=== PATIENT | male | born 1945 ===

== ENCOUNTER → 2016-10-13 | Day surgery (SDC) | payer MEDICARE, BC ==
[2016-10-13] VITALS (10 sets, daily range): BP systolic 114–127; BP diastolic 66–74
[~2016-10-13] VITALS: Ht 167.6 cm; Wt 79.4 kg
[~2016-10-13] MED LIST: AMLODIPINE PO; ASPIR 8181 MG ORAL; CRESTOR20 MG ORAL; FISH OIL PO; HYDROCHLOROTHIA25 MG ORAL; LORAZEPAM0.5 MG ORAL; LR 1000ml 1,000 ML IVLG SCH; LR 1000ml ONE; Lidocaine 1% MPF 10mg/ml 5ml ONE; MULTIVITAMINS1 EAC2 ORAL; PROZAC20 MG ORAL; Propofol 10mg/ml 20ml IV ONE; SERTRALINE HCL25 MG ORAL; VIT C PO
--- NOTE | 2016-10-13 09:22 | Short Stay Surgery H&P ---
History of Present Illness History of Present Illness Chief Complaint Abdominal pains and screening colon HPI Malachi Lemus is a 71 year old male who was admitted on for Colon Screening Patient History Allergies: Coded Allergies: No Known Allergies (Unverified , 10/12/16) PAST MEDICAL HISTORY: (1) Hyperlipidemia Past Surgeries: Social History: Medication History Scheduled Aspirin* (Aspir 81*), 81 MG ORAL DAILY, (Reported) Fluoxetine Hcl* (Prozac*), 20 MG ORAL DAILY, (Reported) Lorazepam* (Lorazepam*), 0.5 MG ORAL PRN, (Reported) Multivitamins* (Multivitamins*), 1 TAB ORAL DAILY, (Reported) Rosuvastatin Calcium* (Crestor*), 20 MG ORAL DAILY, (Reported) Sertraline Hcl* (Sertraline Hcl*), 25 MG ORAL DAILY, (Reported) [Fish Oil], 1 TAB-CAP PO DAILY, (Reported) [Vit C], 1,000 MG PO DAILY, (Reported) Review of Systems Cardiovascular: Reports: no symptoms Respiratory: Reports: no symptoms Skeletal: Reports: no symptoms Gastrointestinal: Reports: no symptoms Genitourinary: Reports: no symptoms Neurologic: Reports: no symptoms Endocrine: Reports: no symptoms Hematologic: Reports: no symptoms Physical Exam Vital Signs Last Vital Signs Date Time Temp Pulse Resp B/P Pulse Ox O2 Delivery O2 Flow Rate FiO2 10/13/16 09:01 97.8 74 18 127/74 95 Room Air Skin: normal HENT: normal Heart: normal Lungs: normal Abdomen: normal Extremities: normal Genitourinary: normal Plan Plan of Care Upper and lower GI endoscopy Preop Interventions None. Summary of Findings See the reports Final Diagnosis: Attestation Are the patient's medical conditions optimized for surgery? Attestation Response: yes EMY DUMONT Oct 13, 2016 09:22
--- NOTE | 2016-10-13 09:23 | Pre-Procedure Note/Attestation ---
Pre-Procedure Note/Attestation Complete Prior to Procedure Planned Procedure: left Procedure Narrative: The endoscopic examination of the upper and lower GI tract. Indications for Procedure Pre-Operative Diagnosis: R/O gastritis/esophagitis/colitis colon polyps. Attestation I attest that I discussed the nature of the procedure; its benefits; risks and complications; and alternatives (and the risks and benefits of such alternatives ), prior to the procedure, with the patient (or the patient's legal screening representative). I attest that, if there was a reasonable possibility of needing a blood transfusion, the patient (or the patient's legal screening representative) was given the [facility] standardized written summary, pursuant to the Junito Patel Blood Safety Act ([place] Health and Safety Code # 1645, as amended). I attest that I re-evaluated the patient just prior to the surgery and that there has been no change in the patient's H&P, except as documented below: EMY DUMONT Oct 13, 2016 09:23
--- NOTE | 2016-10-13 09:25 | Anethesia Preoperative Eval ---
Anesthesia Pre-op PMH/ROS General Date of Evaluation: Oct 13, 2016 Time of Evaluation: 09:24 Anesthesiologist: richie Mallampati Score Class I : Soft palate, uvula, fauces, pillars visible Class II: Soft palate, uvula, fauces visible Class III: Soft palate, base of uvula visible Class IV: Only hard plate visible Mallampati Classification: Class II Surgeon: Rhab Diagnosis: colon polyp Surgical Procedure: EGD/Colon Anesthesia History: none Family History: no anesthesia problems Allergies: Coded Allergies: No Known Allergies (Unverified , 10/12/16) Medications: see eMAR Past Medical History Cardiovascular: Reports: HTN Pulmonary: Denies: COPD, DIONE, asthma, other Gastrointestinal/Genitourinary: Denies: CRI, ESRD, GERD, other Neurologic/Psychiatric: Reports: depression/anxiety Endocrine: Reports: DM HEENT: Denies: [place] (L), [place] (R), cataract (L), cataract (R), glaucoma, other Hematology/Immune: Denies: DVT, anemia, bleeding disorder, other Musculoskeletal/Integumentary: Denies: DDD, DJD, OA, RA, edema, other Anesthesia Pre-op Phys. Exam Physician Exam Last Vital Signs Date Time Temp Pulse Resp B/P Pulse Ox O2 Delivery O2 Flow Rate FiO2 10/13/16 09:01 97.8 74 18 127/74 95 Room Air Constitutional: NAD Neurologic: CN 2-12 intact Cardiovascular: RRR Respiratory: CTA Gastrointestinal: S/NT/ND Airway Exam Mallampati Classification 2 Mallampati Score: Class II MO: full ROM: full Dentures: no lower, no upper Anesthesia Pre-op A/P Studies Pre-op Studies: EKG - SR Risk Assessment & Plan Plan: mac Status Change Before Surgery: No Pre-Antibiotics Drug: none BHAVANI NORTON CRNA Oct 13, 2016 09:25
--- NOTE | 2016-10-13 09:46 | Endoscopy Procedure Note ---
Endoscopy Procedure Note Indication for Procedure: History of GERDs and screening colon Procedures Performed: EGD - Minimal gastritis, biopsy obtained from antrum., colonoscopy - Minimal internal hemorrhoids with mild diverticulosis of rectosigmoid area. Substandard colon clean up. Specimen: yes Pt Tolerated Procedure Well: Yes Estimated Blood Loss: none Anesthesiologist: Dr. Orr Anesthesia: moderate sedation Medication Given: see anesthesia record Implant(s) used?: No 50 yrs or older w/o bx or poly: Yes 10yrs. F/U not recommended: Yes If not recommended, why?: Med reason:<3 yrs.: System Reason:<3 yrs.: Last colonoscopy >= to 3yrs: Yes EMY DUMONT Oct 13, 2016 09:46
--- NOTE | 2016-10-13 09:47 | Discharge Instructions ---
Discharge Instructions Discharge Instructions Follow up with: Visit the doctor in office after two weeks. For Congestive Heart Failure Reminder Report to your physician any weight gain of 5 pounds or more in one week. EMY DUMONT Oct 13, 2016 09:47
--- NOTE | 2016-10-13 10:05 | Immediate Post-Op Evaluation ---
Immediate Post-Op Evalulation Immediate Post-Op Evalulation Procedure: EGD/Colonoscopy Date of Evaluation: Oct 13, 2016 Time of Evaluation: 09:55 IV Fluids: 200 Blood Pressure Systolic: 114 Blood Pressure Diastolic: 48 Pulse Rate: 77 Respiratory Rate: 14 O2 Sat by Pulse Oximetry: 99 Nausea: No Vomiting: No Patient Status: awake, reacts, patent Hydration Status: adequate Drug: none BHAVANI NORTON CRNA Oct 13, 2016 10:05
--- NOTE | 2016-10-13 10:31 | 48 Hour Post Anesthesia Eval ---
Post Anesthesia Evaluation Procedure: EGD/Colonoscopy Date of Evaluation: Oct 13, 2016 Time of Evaluation: 10:28 Blood Pressure Systolic: 117 0: 71 Pulse Rate: 67 O2 Sat by Pulse Oximetry: 99 Airway: patent Nausea: No Vomiting: No Hydration Status: adequate Mental Status/LOC: patient returned to baseline Post-Anesthesia Complications: none Follow-up care needed: N/A BHAVANI NORTON CRNA Oct 13, 2016 10:31
--- NOTE | 2016-10-13 15:29 | Operative Note - Dictated ---
DATE OF OPERATION: 10/13/2016 PROCEDURE: Esophagogastroduodenoscopy with biopsy. PREOPERATIVE DIAGNOSES: 1. Abdominal pain. 2. History of gastroesophageal reflux disease. POSTOPERATIVE DIAGNOSES: Very minimal gastritis, otherwise complete normal upper gastrointestinal endoscopy. Biopsy was taken per random from antrum. INSTRUMENT: GIF Olympus upper GI video endoscope. ANESTHESIOLOGIST: Dr. Burgos. DESCRIPTION OF PROCEDURE: The patient after arriving endoscopy unit, was told about risks and benefits of the procedure, which he accepted and signed the informed consent. He was then put on the left lateral decubitus position. After adequate IV sedation, scope gently passed through the cricopharyngeal area, was lodged into the upper esophagus, and gradually advanced towards gastroesophageal junction. The entire length of the esophagus was normal. No evidence of any abnormality such as tumors, inflammatory process, exudate, stricture etc. was found. GE junction also looked normal. At this time, the scope was advanced into the stomach. Gastric cavity was distended and gradually the areas of the fundus and the body and the antrum were examined which basically revealed normal finding except minimal inflammatory process in the body and the antrum raising the possibility of underlying very mild gastritis, one random biopsy from the antrum was obtained and subsequently the scope was passed through the pylorus. First and second portion of duodenum were found to be completely normal. At this time, the scope was pulled out and procedure was terminated. The patient tolerated the procedure well. Said Anne Elmore DR: Demar JOB#: [id number] CC:
--- NOTE | 2016-10-13 15:39 | Operative Note - Dictated ---
DATE OF OPERATION: 10/13/2016 SURGEON: Jamshid Elmore M.D. ANESTHESIOLOGIST: Daniel Orr. PROCEDURE: Total colonoscopy. PREOPERATIVE DIAGNOSIS: Screening colonoscopy. POSTOPERATIVE DIAGNOSES: 1. Very minimal internal hemorrhoid and a single diverticulum found in the rectosigmoid area, otherwise completely normal study up to the base of the cecum examined. 2. Poor colonic preparation. MEDICATION USED: Per Dr. Orr. INSTRUMENT: GIF Olympus videocolonoscope. DESCRIPTION OF PROCEDURE: The patient after arriving in the endoscopy unit, was told about risks and benefits of the procedure, which he accepted and signed the informed consent. He was then put in the left lateral decubitus position. After adequate IV sedation, the scope was then gently passed through the anal area and a retroflexion maneuver, which was applied revealed very minimal internal hemorrhoid of no great significance. The rectum itself was completely normal. At this time, the scope was passed through somewhat redundant left colon, and an incidental finding of a small diverticular lesion was noted which was not significant. The rest of the left colon was within normal limits as the scope was gradually passed toward the splenic flexure, transverse colon, and right colon all the way to the base of the cecum. All these areas remained to be normal. The colon cleanup was substandard and multiple irrigation had to be given; however, there was no any gross pathology noted as I mentioned though the presence of a small diminutive hyperplastic polyps could not be ruled out; however, upon reaching to the base of the cecum, the scope was gradually pulled out and re-evaluation of the colon which took about 7 minutes did not reveal any other pathologies. The patient tolerated the procedure well and left the endoscopy room in good condition. Jamshid Elmore M.D. DR: Mehnaz JOB#: [id number] CC:
== END | disposition home or self-care (01) ==
LOC: GAS 08:10
DX: Z12.11 Encounter for screening for malignant neoplasm of colon (principal); K57.30 Diverticulosis of large intestine without perforation or abscess without bleeding; K64.8 Other hemorrhoids; K29.50 Unspecified chronic gastritis without bleeding; E11.9 Type 2 diabetes mellitus without complications; I10 Essential (primary) hypertension; E78.5 Hyperlipidemia, unspecified; F32.9 Major depressive disorder, single episode, unspecified; F41.9 Anxiety disorder, unspecified; Z79.82 Long term (current) use of aspirin; Z79.899 Other long term (current) drug therapy
CPT/HCPCS: 43239; 82962; G0121; J2704; J7120; 94003; 94150